=== PATIENT | female | born 1980 | race Caucasian/White ===

== ENCOUNTER 2017-07-01 17:21 | Emergency (ER) | payer MEDICAID ==
--- NOTE | 2017-07-01 18:44 | EDPHY ---
H & P Time Seen by Provider: 07/01/17 18:10 HPI/ROS: CHIEF COMPLAINT: Flu-like comes, right facial pain HISTORY OF PRESENT ILLNESS: Patient is a 36-year-old female with a past medical history of migraines who presents to the emergency room with flu-like symptoms. She states she developed these flu-like symptoms 1 week ago. It came on fairly suddenly. She has severe sore throat, fever and chills. Her symptoms slowly improved. She noted that her 4-year-old child also had viral illness symptoms and conjunctivitis. This morning the patient awoke and felt worse. She developed right jaw pain. This radiated up the right side of her face. She denies any photophobia. No neck stiffness. Patient denies any focal neurologic deficits. No weakness or numbness. No visual change. Patient states that she has been dealing with depression and anxiety recently. She has periods of being tearful. No suicidal thoughts. She thought she may have had a panic attack earlier today which caused her to call the ambulance. She states she woke from a nap began breathing weekly. She had both hands and felt like they were turning blue. This caused a become more stressed and she called 911. The patient has an ongoing nonproductive cough. No chest pain. No abdominal pain. No nausea or vomiting. No diarrhea. REVIEW OF SYSTEMS: My complete review of systems is negative except as mentioned in the HPI. Past Medical/Surgical History: Includes migraines. The patient self reports that she may have depression or anxiety. Past surgical history: Negative Social history: The patient drink alcohol. She denies drug use. She does not smoke. Smoking Status: Never smoked Physical Exam: 37.5, 119/99, 120, 18, 98% on room air. This is triage. GENERAL: Well-appearing, in no acute distress, alert. HEENT: Eyes normal to inspection, normal pharynx, no signs of dehydration. NECK: [No thyromegaly, no lymphadenopathy, supple. RESPIRATORY: Clear to auscultation bilaterally, no rales, rhonchi or wheezing. CVS: Regular rate and rhythm, no rubs, murmurs, or gallops. Tachycardia has resolved. ABDOMEN: Soft, nontender, nondistended, no organomegaly. BACK: Normal to inspection, no CVA tenderness. SKIN: Normal color, no rash, warm, dry. No pallor. EXTREMITIES: No pedal edema, no calf tenderness, no Homans sign or cords, no joint swelling. NEURO/PSYCH: Alert and oriented x3, normal mood and affect, normal motor sensory exam. No obvious cranial nerve deficit. Constitutional: Initial Vital Signs Temperature (C) 37.5 C 07/01/17 17:45 Heart Rate 120 H 07/01/17 17:45 Respiratory Rate 18 07/01/17 17:45 Blood Pressure 119/99 H 07/01/17 17:45 O2 Sat (%) 98 07/01/17 17:45 O2 Delivery Mode Room Air Allergies/Adverse Reactions: No Known Allergies Allergy (Unverified 04/08/15 17:20) Home Medications: Medication Instructions Recorded NK [No Known Home Meds] 04/08/15 Medical Decision Making - Diagnostics Imaging Results: Imaging Impressions Chest X-Ray 07/01/17 18:48 Impression: No acute thoracic abnormality. ED Course/Re-evaluation: In the Emergency discussed etiologies with the patient. I answered all her questions. IV was placed. Laboratory studies and chest x-ray were ordered. Patient's last menstrual period was 2 weeks ago She denies the possibility of . The patient was given Toradol 30 mg IV. The patient's CBC showed elevated white count 55179. Patient's chemistry panel was unremarkable. Influenza screen negative. UA negative. Still waiting stretching. Patient was noted to still be tachycardic. She had no other new complaints. She was given repeat L of normal saline. Strep negative. 2137: I rechecked the patient while here. She had no new complaints shortness of breath, chest pain. Her jaw pain improved. She had no tap tenderness to palpation. She is given warnings prior to leaving she will return with worsening symptoms. Differential Diagnosis: My differential includes but is not limited to influenza, strep pharyngitis, pneumonia, bronchitis, bacteremia, sepsis, meningitis, encephalitis, viral illness, thyroid disease - Data Points Laboratory Results: Laboratory Results 07/01/17 18:50 07/01/17 18:50 07/01/17 07/01/17 07/01/17 Unknown 20:42 19:05 WBC RBC Hgb Hct MCV MCH MCHC RDW Plt Count MPV Neut % (Auto) Lymph % (Auto) Rhea % (Auto) Eos % (Auto) Baso % (Auto) Nucleat RBC Rel Count Absolute Neuts (auto) Absolute Lymphs (auto) Absolute Monos (auto) Absolute Eos (auto) Absolute Basos (auto) Absolute Nucleated RBC Immature Gran % Immature Gran # Sodium Potassium Chloride Carbon Dioxide Anion Gap BUN Creatinine Estimated GFR Glucose Calcium TSH Urine Color PALE YELLOW Urine Appearance CLEAR Urine pH 8.0 H (5.0-7.5) Ur Specific Alliance 1.006 (1.002-1.030) Urine Protein NEGATIVE (NEGATIVE) Urine Ketones TRACE H (NEGATIVE) Urine Blood NEGATIVE (NEGATIVE) Urine Nitrate NEGATIVE (NEGATIVE) Urine Bilirubin NEGATIVE (NEGATIVE) Urine Urobilinogen NEGATIVE EU EU (0.2-1.0) Ur Leukocyte Esterase NEGATIVE (NEGATIVE) Urine RBC 3-5 /hpf H /hpf (0-3) Urine WBC 1-3 /hpf /hpf (0-3) Ur Epithelial Cells TRACE /lpf /lpf (NONE-1+) Urine Glucose NEGATIVE (NEGATIVE) Nasal Influenza A PCR Nasal Influenza B PCR Group A Strep Screen NEGATIVE (NEGATIVE) Group A Strep DNA Pending 07/01/17 07/01/17 07/01/17 18:50 18:50 18:50 WBC 15.36 10^3/uL H 10^3/uL (3.80-9.50) RBC 4.94 10^6/uL 10^6/uL (4.18-5.33) Hgb 14.8 g/dL g/dL (12.6-16.3) Hct 42.9 % % (38.0-47.0) MCV 86.8 fL fL (81.5-99.8) MCH 30.0 pg pg (27.9-34.1) MCHC 34.5 g/dL g/dL (32.4-36.7) RDW 11.7 % % (11.5-15.2) Plt Count 342 10^3/uL 10^3/uL (150-400) MPV 10.4 fL fL (8.7-11.7) Neut % (Auto) 80.5 % H % (39.3-74.2) Lymph % (Auto) 11.1 % L % (15.0-45.0) Rhea % (Auto) 6.9 % % (4.5-13.0) Eos % (Auto) 0.7 % % (0.6-7.6) Baso % (Auto) 0.5 % % (0.3-1.7) Nucleat RBC Rel Count 0.0 % % (0.0-0.2) Absolute Neuts (auto) 12.36 10^3/uL H 10^3/uL (1.70-6.50) Absolute Lymphs (auto) 1.71 10^3/uL 10^3/uL (1.00-3.00) Absolute Monos (auto) 1.06 10^3/uL H 10^3/uL (0.30-0.80) Absolute Eos (auto) 0.11 10^3/uL 10^3/uL (0.03-0.40) Absolute Basos (auto) 0.07 10^3/uL 10^3/uL (0.02-0.10) Absolute Nucleated RBC 0.00 10^3/uL 10^3/uL (0-0.01) Immature Gran % 0.3 % % (0.0-1.1) Immature Gran # 0.05 10^3/uL 10^3/uL (0.00-0.10) Sodium 140 mEq/L mEq/L (134-144) Potassium 4.5 mEq/L mEq/L (3.5-5.2) Chloride 103 mEq/L mEq/L (97-110) Carbon Dioxide 24 mEq/l mEq/l (22-31) Anion Gap 13 mEq/L mEq/L (8-16) BUN 10 mg/dL mg/dL (7-23) Creatinine 0.7 mg/dL mg/dL (0.6-1.0) Estimated GFR > 60 Glucose 82 mg/dL mg/dL (70-100) Calcium 9.5 mg/dL mg/dL (8.5-10.4) TSH 2.740 uIU/mL uIU/mL (0.465-4.680) Urine Color Urine Appearance Urine pH Ur Specific Alliance Urine Protein Urine Ketones Urine Blood Urine Nitrate Urine Bilirubin Urine Urobilinogen Ur Leukocyte Esterase Urine RBC Urine WBC Ur Epithelial Cells Urine Glucose Nasal Influenza A PCR NEGATIVE FOR FLU A (NEGATIVE) Nasal Influenza B PCR NEGATIVE FOR FLU B (NEGATIVE) Group A Strep Screen Cancelled Group A Strep DNA Medications Given: Discontinued Medications Sodium Chloride (Ns) 1,000 mls @ 0 mls/hr IV ONCE ONE PRN Reason: Wide Open Stop: 07/01/17 18:49 Last Admin: 07/01/17 19:04 Dose: 1,000 mls Sodium Chloride (Ns) 1,000 mls @ 0 mls/hr IV ONCE ONE PRN Reason: Wide Open Stop: 07/01/17 20:38 Last Admin: 07/01/17 20:52 Dose: 1,000 mls Ketorolac Tromethamine (Toradol) 30 mg IVP EDNOW ONE Stop: 07/01/17 18:49 Last Admin: 07/01/17 19:04 Dose: 30 mg Departure - Departure Disposition: Home, Routine, Self-Care Clinical Impression: Viral illness Fever Qualifiers: Fever type: unspecified Qualified Code(s): R50.9 - Fever, unspecified Condition: Good Instructions: Viral Syndrome (ED), Fever in Adults (ED) Additional Instructions: Return with increasing headache, facial pain, jaw pain, facial rash, neck stiffness, persistent fever, repeated vomiting or any other concerns. Referrals: Kelsi Hannon MD [Primary Care Provider] - 1-2 days without fail
[2017-07-01] MEDS ORDERED: KETOROLAC 30 MG/1 ML SDV IVP ONE (18:48)
[2017-07-01] MEDS ORDERED: NS 1,000 ML IV ONE ×2 (18:48→20:37)
[2017-07-01 18:57] LABS: PLATELET COUNT 342 10^3/uL (150-400)
[2017-07-01 20:29] VITALS: RESP 16
[2017-07-01 21:24] VITALS: BP 121/82; PULSE 103; TEMP 98.2; O2SAT 96
== END 2017-07-01 21:55 | disposition home or self-care (01) ==
DX: R50.9 Fever, unspecified (principal); B34.9 Viral infection, unspecified
CPT/HCPCS: 96374; J1885